=== PATIENT | male | born 1990 | race Caucasian/White ===

== ENCOUNTER 2018-07-09 20:41 | Emergency (ER) | payer SELFPAY ==
[2018-07-09 20:48] VITALS: BP 140/94; PULSE 80; RESP 16; TEMP 97.9; O2SAT 100
--- NOTE | 2018-07-09 21:04 | ED PDOC ---
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 He states he was just walking a couple blocks from here when an unprovoked dog bit him though his jeans on his left leg. Patient reports the dog and its magnetic tape composer operator immediately left before he could get the dog magnetic tape composer operator's information or any information about the dog's vaccinations. Did not file a police report. He is here for evaluation of the wound. Tetanus not up to date PMD: none provided Past Medical History Reviewed: Historical Data, Nursing Documentation, Vital Signs Vital Signs: Last Vital Signs Temp 97.9 F 07/09/18 20:45 Pulse 80 07/09/18 20:45 Resp 16 07/09/18 20:45 BP 140/94 H 07/09/18 20:45 Pulse Ox 100 07/09/18 20:45 - Medical History PMH: No Chronic Diseases - Surgical History Surgical History: No Surg Hx - Family History Family History: States: Unknown Family Hx - Social History Current smoker - smoking cessation education provided: No Alcohol: None Drugs: Denies - Home Medications Home Medications: Ambulatory Orders Medication Instructions Recorded Amoxicillin/Clavulanate [Augmentin 1 tab PO BID #14 tab 07/09/18 875 MG-125 MG] Bacitracin Ointment [Bacitracin] 1 applic TOP BID #1 tube 07/09/18 Ibuprofen [Motrin Tab] 800 mg PO Q8 PRN #21 tab 07/09/18 - Allergies Allergies/Adverse Reactions: Allergies Allergy/AdvReac Type Severity Reaction Status Date / Time No Known Allergies Allergy Verified 07/09/18 20:45 Review of Systems ROS Statement: Except As Marked, All Systems Reviewed And Found Negative Skin: Positive for: Other (dog bite to left leg) Physical Exam - Reviewed Nursing Documentation Reviewed: Yes Vital Signs Reviewed: Yes - Physical Exam Comments: GENERAL APPEARANCE: Patient is awake, alert, oriented x 3, in no acute distress. Resting comfortably. Skin: Warm and dry. Neck: Supple ENT: Mucus membranes moist. Airway patent, (-) stridor. Pulmonary: lungs clear to auscultation bilaterally, no rhonchi, no wheezing, no rales. Cardiac: regular rate and rhythm Extremities: (+) 3 puncture wounds to lateral distal left thigh, (+) mild surrounding ecchymosis, (-) active bleeding, (-) tenderness (-) edema (-) pus drainage (-) erythema (-) warmth (-) surrounding cellulitis. Full ROM throughout left leg. Sensation intact throughout. (+) distal pulses - ECG O2 Sat by Pulse Oximetry: 100 (RA) Pulse Ox Interpretation: Normal Medical Decision Making Medical Decision Making: Initial Impression: dog bite Time: 2109 Initial Plan: --Tetanus booster --Augmentin 1 tab PO --Wounds irrigated with normal saline and bacitracin dressing applied. Patient educated on wound care. --Rabies prophylaxis recommended to patient however patient requesting additional time before he agrees to prophylaxis. 2129 Patient is refusing Rabies prophylaxis at this time. The risks of his decision were discussed in great detail with him. He has full understanding of his decision / consequences, and is cognitively competent to make this decision at this time. 2224 French flying instructor #[id number] used to further clarify patient's decision at which time patient continues to refuse rabies prophylaxis. Patient signed informed refusal of treatment form and is requesting discharge. On re-evaluation, patient reports improvement of symptoms. On exam, patient remains AAOx3, in no acute distress. Vitals stable. Lab/Diagnostic results d/w the patient in great detail. Diagnosis of dog bite d/w the patient. Based on history, exam and diagnostic results, plan will be for outpatient follow up. Patient instructed to follow-up with pmd / referral provided / the clinic in 1- 2 days without fail. Advised to take medication as prescribed. Return to the emergency room at any time for any new or worsening symptoms. Patient states he fully agrees with and understands discharge instructions. States that he agrees with the plan and disposition. Verbalized and repeated discharge instructions and plan. I have given the patient opportunity to ask any additional questions. Scribe Attestation: Documented by Sari Montiel, acting as a scribe for Elizabeth Roberson PA-C. Provider Scribe Attestation: All medical record entries made by the Scribe were at my direction and personally dictated by me. I have reviewed the chart and agree that the record accurately reflects my personal performance of the history, physical exam, medical decision making, and the department course for this patient. I have also personally directed, reviewed, and agree with the discharge instructions and disposition. Disposition - Clinical Impression Clinical Impression: Dog bite of left thigh - Patient ED Disposition Is Patient to be Admitted: No Counseled Patient/Family Regarding: Studies Performed, Diagnosis, Need For Followup, Rx Given - Disposition Referrals: [facility] [Outside] Disposition: Routine/Home Disposition Time: 22:45 Condition: STABLE Additional Instructions: The emergency medical care you received today was directed at your acute symptoms. If you were prescribed any medication, please fill it and take as dir ected. It may take several days for your symptoms to resolve. Return to the Emergency Department if your symptoms worsen, do not improve, or if you have any other problems. Please contact your doctor in 2 days for re-evaluation and follow up / or call one of the physicians/clinics you have been referred to that are listed on the Patient Visit Information form that is included in your discharge packet. Bring any paperwork you were given at discharge with you along with any medications you are taking to your follow up visit. Our treatment cannot replace ongoing medical care by a primary care provider (PCP) outside of the emergency department. Prescriptions: Amoxicillin/Clavulanate [Augmentin 875 MG-125 MG] 1 tab PO BID #14 tab Bacitracin Ointment [Bacitracin] 1 applic TOP BID #1 tube Ibuprofen [Motrin Tab] 800 mg PO Q8 PRN #21 tab PRN Reason: Pain, Moderate (4-7) Instructions: Animal Bites (DC), Wound Care Forms: [employer] (Armenian) Print Language: KAZAKH - POA Present On Arrival: None
[2018-07-09] MEDS ORDERED: Amoxicillin-Clav 875-125 mg Tab PO STA (21:07)
[2018-07-09] MEDS ORDERED: Tdap Vaccine 0.5 ml Vial (10-64 yrs) IM ONE ×2 (21:07→21:21)
[2018-07-09] MEDS ORDERED: Amoxicillin-Clav 875-125 mg Tab PO ONE (21:19)
== END 2018-07-09 22:52 | disposition home or self-care (01) ==
LOC: H.ER 20:41
DX: S71.152A Open bite, left thigh, initial encounter (principal); W54.0XXA Bitten by dog, initial encounter; Y92.89 Other specified places as the place of occurrence of the external cause

== ENCOUNTER 2018-07-10 23:07 | Emergency (ER) | payer SELFPAY ==
[2018-07-10 23:21] VITALS: BP 135/91; PULSE 77; RESP 16; TEMP 98.7; O2SAT 99
[2018-07-10] MEDS ORDERED: Rabies Immune Globulin 150 INTLU/ML VIAL IM ONE (23:28)
--- NOTE | 2018-07-10 23:33 | ED PDOC ---
HPI: Skin/Bite Injury Time Seen by Provider: 07/10/18 23:23 Chief Complaint (Nursing): Rabies Vaccine Series Chief Complaint (Provider): Dog Bite History Per: Patient History/Exam Limitations: no limitations Onset/Duration Of Symptoms: Days (yesterday night) Additional Complaint(s): 28 year old male presents to the ED for evaluation s/p a dog bite last night. Patient was seen here last night for wound evaluation, started on Augmentin, and refused rabies prophylaxis. He states it was an unprovoked attack where a dog bit him though his jeans on his left leg. Patient reports the dog and its area plant manager immediately left before he could get the dog area plant manager's information or any information about the dog's vaccinations. Did not file a police report. Patient now presents requesting rabies prophylaxis. Tetanus: up to date PMD: none provided Past Medical History Reviewed: Historical Data, Nursing Documentation, Vital Signs Vital Signs: Last Vital Signs Temp 98.7 F 07/10/18 23:19 Pulse 77 07/10/18 23:19 Resp 16 07/10/18 23:19 BP 135/91 H 07/10/18 23:19 Pulse Ox 99 07/10/18 23:19 - Medical History PMH: No Chronic Diseases - Surgical History Surgical History: No Surg Hx - Family History Family History: States: Unknown Family Hx - Social History Current smoker - smoking cessation education provided: No Alcohol: None Drugs: Denies - Immunization History Hx Tetanus Toxoid Vaccination: Yes - Home Medications Home Medications: Ambulatory Orders Medication Instructions Recorded Amoxicillin/Clavulanate [Augmentin 1 tab PO BID #14 tab 07/09/18 875 MG-125 MG] Bacitracin Ointment [Bacitracin] 1 applic TOP BID #1 tube 07/09/18 Ibuprofen [Motrin Tab] 800 mg PO Q8 PRN #21 tab 07/09/18 - Allergies Allergies/Adverse Reactions: Allergies Allergy/AdvReac Type Severity Reaction Status Date / Time No Known Allergies Allergy Verified 07/09/18 20:45 Review of Systems ROS Statement: Except As Marked, All Systems Reviewed And Found Negative Skin: Positive for: Other (dog bite to left thigh) Physical Exam - Reviewed Nursing Documentation Reviewed: Yes Vital Signs Reviewed: Yes - Physical Exam Comments: GENERAL APPEARANCE: Patient is awake, alert, oriented x 3, in no acute distress. Skin: Warm and dry. Neck: Supple ENT: Mucus membranes moist. Airway patent, (-) stridor. Pulmonary: lungs clear to auscultation bilaterally, no rhonchi, no wheezing, no rales. Cardiac: regular rate and rhythm Extremities: (+) 3 scabbed puncture wounds to lateral distal left thigh, (+) mild surrounding ecchymosis, (-) active bleeding, (-) tenderness (-) edema (-) pus drainage (-) erythema (-) warmth (-) surrounding cellulitis. Full ROM throughout left leg. Sensation intact throughout. (+) distal pulses - ECG O2 Sat by Pulse Oximetry: 99 (RA) Pulse Ox Interpretation: Normal Medical Decision Making Medical Decision Making: Initial Impression: dog bite, need for rabies prophylaxis Plan: Rabies Vaccine IM Rabies Immunoglobulin Re-evaluation 0005 Lab/Diagnostic results d/w the patient in great detail. Diagnosis of dog bite, need for rabies prophylaxis d/w the patient. Based on history, exam and diagnostic results, plan will be for follow up as directed to complete rabies vaccine series. Patient instructed to follow-up with pmd / referral provided / the clinic in 1- 2 days without fail. Advised to take medication as prescribed. Return to the emergency room at any time for any new or worsening symptoms. Patient states he fully agrees with and understands discharge instructions. States that he agrees with the plan and disposition. Verbalized and repeated discharge instructions and plan. I have given the patient opportunity to ask any additional questions. Disposition - Clinical Impression Clinical Impression: Dog bite of left thigh, Need for prophylactic vaccination against rabies - Patient ED Disposition Is Patient to be Admitted: No Counseled Patient/Family Regarding: Studies Performed, Diagnosis, Need For Followup, Rx Given - Disposition Referrals: [facility] [Outside] Disposition: Routine/Home Disposition Time: 00:05 Condition: STABLE Additional Instructions: RETURN TO ED ON 07/13/18, 07/17/18, AND 07/24/17 FOR RABIES VACCINE SERIES. CONTINUE AUGMENTIN PRESCRIBED FROM PRIOR ED VISIT. CONTINUE WOUND CARE DIRECTED FROM PRIOR ED VISIT. The emergency medical care you received today was directed at your acute symptoms. If you were prescribed any medication, please fill it and take as directed. It may take several days for your symptoms to resolve. Return to the Emergency Department if your symptoms worsen, do not improve, or if you have any other problems. Please contact your doctor in 2 days for re-evaluation and follow up / or call one of the physicians/clinics you have been referred to that are listed on the Patient Visit Information form that is included in your discharge packet. Bring any paperwork you were given at discharge with you along with any medications you are taking to your follow up visit. Our treatment cannot replace ongoing medical care by a primary care provider (PCP) outside of the emergency department. Instructions: Rabies, Animal Bites (DC), Rabies Immune Globulin (Human), Rabies Vaccine Forms: [employer] (Greenlandic) Print Language: ICELANDIC - POA Present On Arrival: None
== END 2018-07-11 00:15 | disposition home or self-care (01) ==
LOC: H.ER 23:07
DX: Z29.14 Encounter for prophylactic rabies immune globulin (principal)

== ENCOUNTER 2018-07-13 21:17 | Emergency (ER) | payer SELFPAY ==
[2018-07-13 21:27] VITALS: BP 142/88; PULSE 72; RESP 16; TEMP 98.5; O2SAT 100
--- NOTE | 2018-07-13 21:52 | ED PDOC ---
HPI: Skin/Bite Injury Time Seen by Provider: 07/13/18 21:30 Chief Complaint (Nursing): Bite Chief Complaint (Provider): Bite History Per: Patient History/Exam Limitations: no limitations Onset/Duration Of Symptoms: Days (4x days) Current Symptoms Are (Timing): Better Location Of Injury: Left: Thigh Severity: Mild Additional Complaint(s): 28 year old male with no pertinent past medical history presents to the ED for day 3 of the rabies vaccination. Patient was see here on 07/09/2018 for complaints of an animal bite, and received the rabies vaccination. Patient offers no complaints at this time. PMD: None Past Medical History Reviewed: Historical Data, Nursing Documentation, Vital Signs Vital Signs: Last Vital Signs Temp 98.5 F 07/13/18 21:26 Pulse 72 07/13/18 21:26 Resp 16 07/13/18 21:26 BP 142/88 07/13/18 21:26 Pulse Ox 100 07/13/18 21:26 JANNET report viewed?: Yes - Medical History PMH: No Chronic Diseases - Surgical History Surgical History: No Surg Hx - Family History Family History: States: No Known Family Hx - Social History Current smoker - smoking cessation education provided: No Alcohol: None Drugs: Denies - Immunization History Hx Tetanus Toxoid Vaccination: Yes - Home Medications Home Medications: Ambulatory Orders Medication Instructions Recorded Amoxicillin/Clavulanate [Augmentin 1 tab PO BID #14 tab 07/09/18 875 MG-125 MG] Bacitracin Ointment [Bacitracin] 1 applic TOP BID #1 tube 07/09/18 Ibuprofen [Motrin Tab] 800 mg PO Q8 PRN #21 tab 07/09/18 - Allergies Allergies/Adverse Reactions: Allergies Allergy/AdvReac Type Severity Reaction Status Date / Time No Known Allergies Allergy Verified 07/09/18 20:45 Review of Systems ROS Statement: Except As Marked, All Systems Reviewed And Found Negative Physical Exam - Reviewed Nursing Documentation Reviewed: Yes Vital Signs Reviewed: Yes - Physical Exam Appears: Positive for: Well, Non-toxic, No Acute Distress Head Exam: Positive for: ATRAUMATIC, NORMOCEPHALIC Skin: Positive for: Normal Color, Warm, Dry Extremity: Positive for: Other (left lateral distal thigh: superficial puncture wound. (-) erythema, (-) discharge, (-) fluctuance.) Neurologic/Psych: Positive for: Alert, Oriented (3x) - ECG O2 Sat by Pulse Oximetry: 100 (RA) Pulse Ox Interpretation: Normal Medical Decision Making Medical Decision Makin:30 Initial impression: 28 year old male in the ED for day 3 of rabies vaccination. Initial plan: * rabavert vaccine inj 2.5 units IM once 21:40 Patient is advised to continue taking augmentin and to return to the ED for day 7 of rabies vaccination. Scribe Attestation: Documented by Elizabeth Teresa, acting as a scribe for Zafar Esparza Provider Scribe Attestation: All medical record entries made by the Scribe were at my direction and personally dictated by me. I have reviewed the chart and agree that the record accurately reflects my personal performance of the history, physical exam, medical decision making, and the department course for this patient. I have also personally directed, reviewed, and agree with the discharge instructions and disposition. Disposition - Clinical Impression Clinical Impression: Need for rabies vaccination - Disposition Disposition Time: 21:40 Condition: STABLE Additional Instructions: ALBERTA NAJERA, thank you for letting us take care of you today. Your provider was Mary Gilmore MD and you were treated for DOG BITE/VACCINE. The emergency medical care you received today was directed at your acute symptoms. If you were prescribed any medication, please fill it and take as directed. It may take several days for your symptoms to resolve. Return to the Emergency Department if your symptoms worsen, do not improve, or if you have any other problems. Please contact your doctor or call one of the physicians/clinics you have been referred to that are listed on the Patient Visit Information form that is included in your discharge packet. Bring any paperwork you were given at discharge with you along with any medications you are taking to your follow up visit. Our treatment cannot replace ongoing medical care by a primary care provider outside of the emergency department. Thank you for allowing the [facility] team to be part of your care today. If you had an X-Ray or CT scan: A Radiologist will review the ED reading if any change in treatment is needed we will contact you. If you had a blood, urine, or wound culture: It will take several days for the results, if any change in treatment is needed we will contact you. If you had an STI test: It will take 48 hours for the results. Please call after 1 week if you have not heard back. Instructions: Rabies Vaccine Forms: [employer] (Luxembourger)
== END 2018-07-13 22:23 | disposition home or self-care (01) ==
LOC: H.ER 21:17
DX: T14.8XXA Other injury of unspecified body region, initial encounter (principal); W54.0XXA Bitten by dog, initial encounter; Z23 Encounter for immunization

== ENCOUNTER 2018-07-17 21:49 | Emergency (ER) | payer SELFPAY ==
[2018-07-17 21:59] VITALS: BP 126/84; PULSE 69; RESP 18; TEMP 97.5; O2SAT 100
--- NOTE | 2018-07-17 22:31 | ED PDOC ---
HPI: General Adult Time Seen by Provider: 07/17/18 22:06 Chief Complaint (Nursing): Rabies Vaccine Series Chief Complaint (Provider): Rabies Vaccine Series History Per: Patient History/Exam Limitations: no limitations Additional Complaint(s): 28 year old male presents to the ED for his third Rabies shot s/p unprovoked dog bite. Patient notes he is finishing his prescribed antibiotics tonight. Denies wound complications, pain or swelling to the wound, wound drainage, and fever/chills. No other complaints at present. PMD: none provided Tetanus: UTD Past Medical History Reviewed: Historical Data, Nursing Documentation, Vital Signs Vital Signs: Last Vital Signs Temp 97.5 F L 07/17/18 21:56 Pulse 69 07/17/18 21:56 Resp 18 07/17/18 21:56 BP 126/84 07/17/18 21:56 Pulse Ox 100 07/17/18 21:56 - Medical History PMH: No Chronic Diseases - Surgical History Surgical History: No Surg Hx - Family History Family History: States: Unknown Family Hx - Immunization History Hx Tetanus Toxoid Vaccination: Yes - Home Medications Home Medications: Ambulatory Orders Medication Instructions Recorded Amoxicillin/Clavulanate [Augmentin 1 tab PO BID #14 tab 07/09/18 875 MG-125 MG] RX: Bacitracin Ointment 1 applic TOP BID #1 tube 07/09/18 [Bacitracin] RX: Ibuprofen [Motrin Tab] 800 mg PO Q8 PRN #21 tab 07/09/18 - Allergies Allergies/Adverse Reactions: Allergies Allergy/AdvReac Type Severity Reaction Status Date / Time No Known Allergies Allergy Verified 07/09/18 20:45 Review of Systems ROS Statement: Except As Marked, All Systems Reviewed And Found Negative Constitutional: Negative for: Fever Skin: Negative for: Other (wound complications, swelling, pain, or drainage) Physical Exam - Reviewed Nursing Documentation Reviewed: Yes Vital Signs Reviewed: Yes - Physical Exam Comments: GENERAL APPEARANCE: Patient is awake, alert, oriented x 3, in no acute distress. SKIN: Warm, dry; (-) cyanosis. CHEST AND RESPIRATORY: lungs clear to auscultation; breath sounds equal bilaterally. HEART AND CARDIOVASCULAR: (-) irregularity NEURO AND PSYCH: Mental status as above; (-) focal findings. Gait: steady. Speech: clear. - ECG O2 Sat by Pulse Oximetry: 100 (RA) Pulse Ox Interpretation: Normal Medical Decision Making Medical Decision Making: Initial Impression: Rabies vaccination, dog bite Time: 2209 Initial Plan: --Rabies Vaccine 2.5 units IM --Re-evaluation 2319 On re-evaluation, patient offers no complaints. On exam, patient remains AAOx3, in no acute distress. Vitals stable. Lab/Diagnostic results d/w the patient in great detail. Diagnosis of rabies vaccination, dog bite d/w the patient. Based on history, exam and diagnostic results, plan will be for follow up as scheduled on 07/24/18 for last rabies vaccination. Patient instructed to follow-up with pmd / referral provided / the clinic in 1- 2 days without fail. Return to the emergency room at any time for any new or worsening symptoms. Patient states he fully agrees with and understands discharge instructions. States that he agrees with the plan and disposition. Verbalized and repeated discharge instructions and plan. I have given the patient opportunity to ask any additional questions. Scribe Attestation: Documented by Sari Montiel, acting as a scribe for Elizabeth Roberson PA-C. Provider Scribe Attestation: All medical record entries made by the Scribe were at my direction and personally dictated by me. I have reviewed the chart and agree that the record accurately reflects my personal performance of the history, physical exam, medical decision making, and the department course for this patient. I have also personally directed, reviewed, and agree with the discharge instructions and disposition. Disposition - Clinical Impression Clinical Impression: Dog bite of left thigh, Need for prophylactic vaccination against rabies - Patient ED Disposition Is Patient to be Admitted: No Counseled Patient/Family Regarding: Studies Performed, Diagnosis, Need For Followup - Disposition Disposition: Routine/Home Disposition Time: 23:20 Condition: STABLE Additional Instructions: RETURN TO ED ON 07/24/18 FOR LAST RABIES VACCINATION. The emergency medical care you received today was directed at your acute symptoms. If you were prescribed any medication, please fill it and take as directed. It may take several days for your symptoms to resolve. Return to the Emergency Department if your symptoms worsen, do not improve, or if you have any other problems. Please contact your doctor in 2 days for re-evaluation and follow up / or call one of the physicians/clinics you have been referred to that are listed on the Patient Visit Information form that is included in your discharge packet. Bring any paperwork you were given at discharge with you along with any medications yo u are taking to your follow up visit. Our treatment cannot replace ongoing medical care by a primary care provider (PCP) outside of the emergency department. Instructions: Rabies, Animal Bites (DC), Rabies Vaccine Forms: [facility] (Malagasy) Print Language: CHINESE - POA Present On Arrival: None
== END 2018-07-17 23:46 | disposition home or self-care (01) ==
LOC: H.ER 21:49
DX: Z29.14 Encounter for prophylactic rabies immune globulin (principal)

== ENCOUNTER 2018-07-24 23:23 | Emergency (ER) | payer SELFPAY ==
[2018-07-24 23:30] VITALS: BP 140/82; PULSE 79; RESP 16; TEMP 98; O2SAT 99
--- NOTE | 2018-07-24 23:45 | ED PDOC ---
HPI: General Adult Time Seen by Provider: 07/24/18 23:44 Chief Complaint (Nursing): Rabies Vaccine Series Chief Complaint (Provider): rabies vaccine History Per: Patient (28 y/o male here for rabies vaccine #4. No other complaints.) Past Medical History Reviewed: Historical Data, Nursing Documentation, Vital Signs Vital Signs: Last Vital Signs Temp 98.0 F 07/24/18 23:30 Pulse 79 07/24/18 23:30 Resp 16 07/24/18 23:30 BP 140/82 07/24/18 23:30 Pulse Ox 99 07/24/18 23:30 - Family History Family History: States: Unknown Family Hx - Immunization History Hx Tetanus Toxoid Vaccination: Yes - Home Medications Home Medications: Ambulatory Orders Medication Instructions Recorded Amoxicillin/Clavulanate [Augmentin 1 tab PO BID #14 tab 07/09/18 875 MG-125 MG] Bacitracin Ointment [Bacitracin] 1 applic TOP BID #1 tube 07/09/18 Ibuprofen [Motrin Tab] 800 mg PO Q8 PRN #21 tab 07/09/18 - Allergies Allergies/Adverse Reactions: Allergies Allergy/AdvReac Type Severity Reaction Status Date / Time No Known Allergies Allergy Verified 07/24/18 23:27 Review of Systems ROS Statement: Except As Marked, All Systems Reviewed And Found Negative Physical Exam - Reviewed Nursing Documentation Reviewed: Yes Vital Signs Reviewed: Yes - Physical Exam Appears: Positive for: Well, Non-toxic, No Acute Distress Head Exam: Positive for: ATRAUMATIC, NORMAL INSPECTION, NORMOCEPHALIC Skin: Positive for: Normal Color, Warm, DRY Eye Exam: Positive for: EOMI, Normal appearance, PERRL ENT: Positive for: Normal ENT Inspection Neck: Positive for: Normal, Painless ROM Cardiovascular/Chest: Positive for: Regular Rate, Rhythm Respiratory: Positive for: CNT, Normal Breath Sounds Gastrointestinal/Abdominal: Positive for: Normal Exam, Soft Back: Positive for: Normal Inspection Extremity: Positive for: Normal ROM Neurologic/Psych: Positive for: Alert, Oriented - ECG O2 Sat by Pulse Oximetry: 99 Disposition - Clinical Impression Clinical Impression: Need for immunization against rabies - Patient ED Disposition Is Patient to be Admitted: No - Disposition Disposition: Routine/Home Disposition Time: 23:45 Condition: FAIR Instructions: Vaccines for Adults, Rabies Vaccine
== END 2018-07-25 00:33 | disposition home or self-care (01) ==
LOC: H.ER 23:23
DX: Z29.14 Encounter for prophylactic rabies immune globulin (principal)